=== PATIENT | female | born 1980 | race Asian ===

== ENCOUNTER 2016-11-01 06:32 | Inpatient (IN) | payer OTHER ==
[2016-11-01 07:16] LABS: Hematocrit 37 % (35-47); Hemoglobin 11.5 g/dl (12.0-16.0); Mean Corpuscular HGB Conc 31 g/dl (31-36); Mean Corpuscular Hemoglobin 21 pg (27-31); Mean Corpuscular Volume 68 fL (80-97); Mean Platelet Volume 9 um3 (7.4-10.4); Red Blood Count 5.42 10^6/ul (4.0-5.4); Red Cell Distribution Width 16 % (10.5-15); White Blood Count 11.5 10^3/ul (3.5-10.8)
[2016-11-01 07:20] LABS: Comments Flag Yes
[2016-11-01] MEDS ORDERED: Oxytocin in LR* 20 UNITS/1,000 ML BAG IVPB ONE (07:45)
[2016-11-01] MEDS ORDERED: Oxytocin in LR* 20 UNITS/1,000 ML BAG IVPB SCH ×2 (09:00→11:00)
[2016-11-01] MEDS ORDERED: Dibucaine 1% 28.35 GM TUBE PR PRN (10:04)
[2016-11-01] MEDS ORDERED: Varicella Virus Vaccine Live* 0.5 ML VIAL SUBCUT ONE (10:04)
[2016-11-01] MEDS ORDERED: Glycerin ADULT SUPP PR PRN (10:04)
[2016-11-01] MEDS ORDERED: Acetaminophen TAB* 325 MG PO PRN (10:04)
[2016-11-01] MEDS ORDERED: Witch Hazel PAD* JAR TOPICAL PRN (10:04)
[2016-11-01] MEDS ORDERED: Simethicone CHEW TAB* 80 MG PO SCH (12:30)
[2016-11-01] MEDS: Ibuprofen TAB* 600 MG PO PRN ×2 (15:05→21:27)
[2016-11-01] MEDS: Docusate CAP* 100 MG PO SCH ×2 (15:05→21:27)
[2016-11-02 06:16] LABS: Comments Flag Yes; Hematocrit 27 % (35-47); Hemoglobin 8.3 g/dl (12.0-16.0); Mean Corpuscular HGB Conc 32 g/dl (31-36); Mean Corpuscular Hemoglobin 21 pg (27-31); Mean Platelet Volume 9 um3 (7.4-10.4); Red Blood Count 3.92 10^6/ul (4.0-5.4); Red Cell Distribution Width 16 % (10.5-15); White Blood Count 11.6 10^3/ul (3.5-10.8)
[2016-11-02 06:17] LABS: Mean Corpuscular Volume 68 fL (80-97)
[2016-11-02] MEDS: Docusate CAP* 100 MG PO SCH ×3 (08:35→21:03)
[2016-11-02] MEDS: Ferrous Gluconate TAB* 324 MG TAB PO SCH ×2 (08:35→21:03)
--- NOTE | 2016-11-02 17:22 | PTEDU ---
Patient Name: MICHAEL MARRERO ELIDA FANNYANOOP selected video: Never Ever Shake a Baby to view on 11/02/2016 at 5:21:52 PM from [id number]
[2016-11-03] MEDS: Docusate CAP* 100 MG PO SCH (07:53)
[2016-11-03] MEDS: Ferrous Gluconate TAB* 324 MG TAB PO SCH (07:53)
[2016-11-03 08:38] VITALS: BP 117/72
== END 2016-11-03 13:45 | disposition home or self-care (01) | DRG 775 ==
LOC: MCHOBOUT 06:32 → MCHOB 07:02
PROVIDERS: ADMIT Obstetrics & Gynecology; ATTEND Midwife
PROC: 10E0XZZ Delivery of Products of Conception, External Approach (ICD-10-PCS; principal; 2016-11-01)
PROC: 0KQM0ZZ Repair Perineum Muscle, Open Approach (ICD-10-PCS; 2016-11-01)
DX: O48.0 Post-term pregnancy (principal); D64.9 Anemia, unspecified; O70.1 Second degree perineal laceration during delivery; O77.0 Labor and delivery complicated by meconium in amniotic fluid; O90.81 Anemia of the puerperium; O32.6XX0 Maternal care for compound presentation, not applicable or unspecified; Z37.0 Single live birth; Z3A.40 40 weeks gestation of pregnancy
CPT/HCPCS: 36415; 85025; 85027; 85060; 86850; 86900; 86901; A9270-GY